=== PATIENT | female | born 1950 | race Caucasian/White ===

== ENCOUNTER 2023-09-08 09:04 | Inpatient (IN) | payer OTHER, MEDICAID ==
[~2023-09-08] VITALS: Ht 162.6 cm; Wt 48.6 kg
[2023-09-08 11:15] VITALS: BP 142/82; TEMP 97.7; O2SAT 97
[2023-09-08] MEDS ORDERED: DOCUSATE SOD LIQ 100MG/10ML UDC GT PRN (12:10)
[2023-09-08] MEDS ORDERED: ONDANSETRON 4MG ORAL DISINTEGRATING TAB SL PRN (12:10)
[2023-09-08] MEDS ORDERED: COLA100C5 PO (13:35)
[2023-09-08] MEDS ORDERED: CLOP75TA99 PO (13:35)
[2023-09-08] MEDS ORDERED: PANT-23 PO (13:35)
[2023-09-08] MEDS ORDERED: KEPP1TAB PO (13:35)
[2023-09-08] MEDS ORDERED: AMLO1TAB24 PO (13:35)
[2023-09-08] MEDS ORDERED: MIRT-11 PO (13:35)
[2023-09-08] MEDS ORDERED: ASPI-226 PO (13:35)
[2023-09-08] MEDS ORDERED: LIPI80TA PO (13:35)
[2023-09-08] MEDS ORDERED: METO50TA7 PO (13:35)
[2023-09-08] MEDS ORDERED: DILT-44 PO (13:39)
[2023-09-08] MEDS ORDERED: HOME MED LIST COMPLETE! XX SCH (13:40)
[2023-09-08 14:00] VITALS: BP 136/64; TEMP 97.7; O2SAT 98
[2023-09-08] MEDS ORDERED: SALIVA SUBSTITUTE(MOUTHKOTE) BTL MT PRN (14:55)
[2023-09-08 20:27] VITALS: BP 124/65; TEMP 97.9; O2SAT 98
[2023-09-08] MEDS: MIRTAZAPINE 15 MG TAB PO SCH (21:14)
[2023-09-08] MEDS: levETIRAcetam ORAL SOLUTION 500MG/5ML UDC GT SCH (21:15)
[2023-09-08] MEDS: ATORVASTATIN 20 MG TAB PO SCH (21:15)
[2023-09-08] MEDS: METOPROLOL TART 25 MG TABLET PO SCH (21:15)
[2023-09-08] MEDS: ACETAMINOPHEN 325MG/10.15ML UDC PO PRN (21:15)
[2023-09-08] MEDS: NYSTATIN 100,000 UNITS/GM TOPICAL PWD 15GM TOP SCH (21:22)
[2023-09-09 06:29] VITALS: BP 116/72; TEMP 97.9; O2SAT 97
[2023-09-09 07:31] LABS: HEMATOCRIT 31.8 % (36.0-47.0); HEMOGLOBIN 9.5 g/dl (12.0-15.5); MEAN CORPUSCULAR HEMOGLOBIN 25.2 pg (27.0-33.0); MEAN CORPUSCULAR HGB CONC 29.9 g/dl (32.0-36.5); MEAN CORPUSCULAR VOLUME 84.4 fl (80.0-96.0); PLATELET COUNT, AUTOMATED 290 10^3/uL (150-450); RED BLOOD COUNT 3.77 10^6/uL (4.00-5.40); WHITE BLOOD COUNT 6.6 10^3/uL (4.0-10.0)
[2023-09-09 08:04] LABS: ALBUMIN 2.2 G/DL (3.2-5.2); ALKALINE PHOSPHATASE 163 U/L (46-116); ALT/SGPT 29 U/L (7.0-40); AST/SGOT 57 U/L (<34); BILIRUBIN,TOTAL 0.2 MG/DL (0.3-1.2); BLOOD UREA NITROGEN 22 MG/DL (9-23); CALCIUM LEVEL 8.6 MG/DL (8.3-10.6); CARBON DIOXIDE LEVEL 30 MMOL/L (20-31); CHLORIDE LEVEL 103 MMOL/L (98-107); CREATININE FOR GFR 0.58 MG/DL (0.55-1.30); GLOMERULAR FILTRATION RATE > 60.0 (>39); GLUCOSE, FASTING 128 MG/DL (74-106); POTASSIUM SERUM 4.5 MMOL/L (3.5-5.1); SODIUM LEVEL 137 MMOL/L (136-145)
[2023-09-09] MEDS: ASPIRIN 81MG CHEW TABLET PEG SCH (09:28)
[2023-09-09] MEDS: levETIRAcetam ORAL SOLUTION 500MG/5ML UDC GT SCH ×2 (09:28→20:28)
[2023-09-09] MEDS: PANTOPRAZOLE 40MG TAB (PROTONIX) PO SCH (09:28)
[2023-09-09] MEDS: METOPROLOL TART 25 MG TABLET PO SCH ×2 (09:28→20:29)
[2023-09-09] MEDS: CLOPIDOGREL 75 MG TAB PEG SCH (09:28)
[2023-09-09] MEDS: NYSTATIN 100,000 UNITS/GM TOPICAL PWD 15GM TOP SCH ×2 (09:29→20:29)
[2023-09-09] MEDS: ENOXAPARIN 40MG/0.4ML SYRINGE (J1650 PER 10MG) SC SCH (09:29)
[2023-09-09 14:00] VITALS: BP 120/61; TEMP 98.1; O2SAT 97
[2023-09-09 20:00] VITALS: BP 125/63; TEMP 97; O2SAT 96
[2023-09-09] MEDS: MIRTAZAPINE 15 MG TAB PO SCH (20:28)
[2023-09-09] MEDS: ATORVASTATIN 20 MG TAB PO SCH (20:28)
[2023-09-10 06:00] VITALS: BP 117/74; TEMP 98.5; O2SAT 94
[2023-09-10 07:53] LABS: BLOOD UREA NITROGEN 24 MG/DL (9-23); CALCIUM LEVEL 8.4 MG/DL (8.3-10.6); CARBON DIOXIDE LEVEL 29 MMOL/L (20-31); CHLORIDE LEVEL 102 MMOL/L (98-107); CREATININE FOR GFR 0.58 MG/DL (0.55-1.30); GLOMERULAR FILTRATION RATE > 60.0 (>39); GLUCOSE, FASTING 126 MG/DL (74-106); MAGNESIUM LEVEL 1.8 MG/DL (1.8-2.4); POTASSIUM SERUM 4.4 MMOL/L (3.5-5.1); SODIUM LEVEL 136 MMOL/L (136-145)
[2023-09-10] MEDS: CLOPIDOGREL 75 MG TAB PEG SCH (08:44)
[2023-09-10] MEDS: levETIRAcetam ORAL SOLUTION 500MG/5ML UDC GT SCH ×2 (08:44→20:07)
[2023-09-10] MEDS: ASPIRIN 81MG CHEW TABLET PEG SCH (08:45)
[2023-09-10] MEDS: ENOXAPARIN 40MG/0.4ML SYRINGE (J1650 PER 10MG) SC SCH (08:45)
[2023-09-10] MEDS: METOPROLOL TART 25 MG TABLET PO SCH ×2 (08:45→20:08)
[2023-09-10] MEDS: PANTOPRAZOLE 40MG TAB (PROTONIX) PO SCH (08:45)
[2023-09-10] MEDS: NYSTATIN 100,000 UNITS/GM TOPICAL PWD 15GM TOP SCH ×2 (08:45→20:08)
[2023-09-10 14:00] VITALS: BP 112/62; TEMP 98.3; O2SAT 96
[2023-09-10 20:00] VITALS: BP 128/79; TEMP 97.8; O2SAT 95
[2023-09-10] MEDS: MIRTAZAPINE 15 MG TAB PO SCH (20:07)
[2023-09-10] MEDS: ATORVASTATIN 20 MG TAB PO SCH (20:07)
[2023-09-11 06:00] VITALS: BP 125/74; TEMP 97.9; O2SAT 96
[2023-09-11 06:40] LABS: HEMATOCRIT 29.4 % (36.0-47.0); MEAN CORPUSCULAR HEMOGLOBIN 25.7 pg (27.0-33.0); MEAN CORPUSCULAR HGB CONC 30.6 g/dl (32.0-36.5); PLATELET COUNT, AUTOMATED 279 10^3/uL (150-450); WHITE BLOOD COUNT 8.3 10^3/uL (4.0-10.0)
[2023-09-11 07:07] LABS: BLOOD UREA NITROGEN 22 MG/DL (9-23); CALCIUM LEVEL 8.6 MG/DL (8.3-10.6); CARBON DIOXIDE LEVEL 28 MMOL/L (20-31); CHLORIDE LEVEL 101 MMOL/L (98-107); CREATININE FOR GFR 0.58 MG/DL (0.55-1.30); GLOMERULAR FILTRATION RATE > 60.0 (>39); GLUCOSE, FASTING 125 MG/DL (74-106); MAGNESIUM LEVEL 1.9 MG/DL (1.8-2.4); POTASSIUM SERUM 4.4 MMOL/L (3.5-5.1); SODIUM LEVEL 135 MMOL/L (136-145)
[2023-09-11] MEDS: ENOXAPARIN 40MG/0.4ML SYRINGE (J1650 PER 10MG) SC SCH (07:45)
[2023-09-11] MEDS: CLOPIDOGREL 75 MG TAB PEG SCH (07:46)
[2023-09-11] MEDS: levETIRAcetam ORAL SOLUTION 500MG/5ML UDC GT SCH ×2 (07:46→20:41)
[2023-09-11] MEDS: METOPROLOL TART 25 MG TABLET PO SCH ×2 (07:46→20:42)
[2023-09-11] MEDS: PANTOPRAZOLE 40MG TAB (PROTONIX) PO SCH (07:46)
[2023-09-11] MEDS: ASPIRIN 81MG CHEW TABLET PEG SCH (07:46)
[2023-09-11] MEDS: NYSTATIN 100,000 UNITS/GM TOPICAL PWD 15GM TOP SCH ×2 (07:47→20:43)
[2023-09-11 14:00] VITALS: BP 148/88; TEMP 97.5; O2SAT 98
[2023-09-11 20:00] VITALS: BP 125/70; TEMP 97.9; O2SAT 97
[2023-09-11] MEDS: ATORVASTATIN 20 MG TAB PO SCH (20:41)
[2023-09-11] MEDS: MIRTAZAPINE 15 MG TAB PO SCH (20:42)
[2023-09-12 06:07] VITALS: BP 124/67; TEMP 98.3; O2SAT 97
[2023-09-12] MEDS: METOPROLOL TART 25 MG TABLET PO SCH ×2 (07:10→20:38)
[2023-09-12] MEDS: levETIRAcetam ORAL SOLUTION 500MG/5ML UDC GT SCH ×2 (07:10→20:38)
[2023-09-12] MEDS: SINEMET 12.5MG/50MG PER 1/2 TABLET PEG SCH ×2 (07:10→17:15)
[2023-09-12] MEDS: CLOPIDOGREL 75 MG TAB PEG SCH (07:10)
[2023-09-12] MEDS: ENOXAPARIN 40MG/0.4ML SYRINGE (J1650 PER 10MG) SC SCH (07:11)
[2023-09-12] MEDS: ASPIRIN 81MG CHEW TABLET PEG SCH (07:11)
[2023-09-12] MEDS: PANTOPRAZOLE 40MG TAB (PROTONIX) PO SCH (07:11)
[2023-09-12] MEDS: NYSTATIN 100,000 UNITS/GM TOPICAL PWD 15GM TOP SCH ×2 (07:12→20:39)
[2023-09-12 07:29] LABS: BLOOD UREA NITROGEN 25 MG/DL (9-23); CALCIUM LEVEL 8.7 MG/DL (8.3-10.6); CARBON DIOXIDE LEVEL 30 MMOL/L (20-31); CHLORIDE LEVEL 101 MMOL/L (98-107); CREATININE FOR GFR 0.61 MG/DL (0.55-1.30); GLOMERULAR FILTRATION RATE > 60.0 (>39); GLUCOSE, FASTING 121 MG/DL (74-106); MAGNESIUM LEVEL 2.1 MG/DL (1.8-2.4); POTASSIUM SERUM 4.4 MMOL/L (3.5-5.1); SODIUM LEVEL 136 MMOL/L (136-145)
[2023-09-12] MEDS ORDERED: VARIBAR NECTAR 40% w/v 240ML SUSP BTL As Ordered ONE (12:41)
[2023-09-12] MEDS ORDERED: VARIBAR PUDDING 40% w/v 230ML TUBE As Ordered ONE (12:41)
[2023-09-12] MEDS ORDERED: E-Z-PAQUE 96% w/w SUSP 176GM BTL As Ordered ONE (12:42)
[2023-09-12] MEDS ORDERED: BARIUM SULFATE 700 MG TABLET (E-Z-DISK) As Ordered ONE (12:42)
[2023-09-12 14:00] VITALS: BP 113/63; TEMP 97.6; O2SAT 95
[2023-09-12 20:00] VITALS: BP 118/63; TEMP 97.8; O2SAT 99
[2023-09-12] MEDS: MIRTAZAPINE 15 MG TAB PO SCH (20:38)
[2023-09-12] MEDS: ATORVASTATIN 20 MG TAB PO SCH (20:38)
[2023-09-13 06:00] VITALS: BP 109/63; TEMP 96.8; O2SAT 96
[2023-09-13 07:02] LABS: BLOOD UREA NITROGEN 26 MG/DL (9-23); CALCIUM LEVEL 8.8 MG/DL (8.3-10.6); CARBON DIOXIDE LEVEL 31 MMOL/L (20-31); CHLORIDE LEVEL 100 MMOL/L (98-107); CREATININE FOR GFR 0.59 MG/DL (0.55-1.30); GLOMERULAR FILTRATION RATE > 60.0 (>39); GLUCOSE, FASTING 133 MG/DL (74-106); MAGNESIUM LEVEL 1.9 MG/DL (1.8-2.4); POTASSIUM SERUM 4.5 MMOL/L (3.5-5.1); SODIUM LEVEL 136 MMOL/L (136-145)
[2023-09-13] MEDS: levETIRAcetam ORAL SOLUTION 500MG/5ML UDC GT SCH ×2 (09:36→21:12)
[2023-09-13] MEDS: ASPIRIN 81MG CHEW TABLET PEG SCH (09:36)
[2023-09-13] MEDS: CLOPIDOGREL 75 MG TAB PEG SCH (09:36)
[2023-09-13] MEDS: SINEMET 12.5MG/50MG PER 1/2 TABLET PEG SCH ×2 (09:37→17:26)
[2023-09-13] MEDS: PANTOPRAZOLE 40MG TAB (PROTONIX) PO SCH (09:37)
[2023-09-13] MEDS: METOPROLOL TART 25 MG TABLET PO SCH ×2 (09:37→21:16)
[2023-09-13] MEDS: ENOXAPARIN 40MG/0.4ML SYRINGE (J1650 PER 10MG) SC SCH (09:38)
[2023-09-13] MEDS: NYSTATIN 100,000 UNITS/GM TOPICAL PWD 15GM TOP SCH ×2 (09:38→21:17)
[2023-09-13 14:00] VITALS: BP 134/80; TEMP 96.7; O2SAT 97
[2023-09-13 20:00] VITALS: BP 114/69; TEMP 97.2; O2SAT 100
[2023-09-13] MEDS: ACETAMINOPHEN 325MG/10.15ML UDC PO PRN (21:12)
[2023-09-13] MEDS: MIRTAZAPINE 15 MG TAB PO SCH (21:13)
[2023-09-13] MEDS: ATORVASTATIN 20 MG TAB PO SCH (21:13)
[2023-09-14 06:00] VITALS: BP 104/71; TEMP 97.2; O2SAT 95
[2023-09-14 07:24] LABS: HEMATOCRIT 30.1 % (36.0-47.0); HEMOGLOBIN 9.2 g/dl (12.0-15.5); MEAN CORPUSCULAR HEMOGLOBIN 25.6 pg (27.0-33.0); MEAN CORPUSCULAR HGB CONC 30.6 g/dl (32.0-36.5); MEAN CORPUSCULAR VOLUME 83.8 fl (80.0-96.0); PLATELET COUNT, AUTOMATED 297 10^3/uL (150-450); RED BLOOD COUNT 3.59 10^6/uL (4.00-5.40); WHITE BLOOD COUNT 6.9 10^3/uL (4.0-10.0)
[2023-09-14 08:11] LABS: BLOOD UREA NITROGEN 26 MG/DL (9-23); CALCIUM LEVEL 8.5 MG/DL (8.3-10.6); CARBON DIOXIDE LEVEL 32 MMOL/L (20-31); CHLORIDE LEVEL 101 MMOL/L (98-107); CREATININE FOR GFR 0.63 MG/DL (0.55-1.30); GLOMERULAR FILTRATION RATE > 60.0 (>39); GLUCOSE, FASTING 118 MG/DL (74-106); MAGNESIUM LEVEL 1.9 MG/DL (1.8-2.4); POTASSIUM SERUM 4.8 MMOL/L (3.5-5.1); SODIUM LEVEL 138 MMOL/L (136-145)
[2023-09-14] MEDS: levETIRAcetam ORAL SOLUTION 500MG/5ML UDC GT SCH ×2 (08:17→21:38)
[2023-09-14] MEDS: ASPIRIN 81MG CHEW TABLET PEG SCH (08:17)
[2023-09-14] MEDS: SINEMET 12.5MG/50MG PER 1/2 TABLET PEG SCH ×2 (08:17→18:18)
[2023-09-14] MEDS: PANTOPRAZOLE 40MG TAB (PROTONIX) PO SCH (08:18)
[2023-09-14] MEDS: ENOXAPARIN 40MG/0.4ML SYRINGE (J1650 PER 10MG) SC SCH (08:18)
[2023-09-14] MEDS: METOPROLOL TART 25 MG TABLET PO SCH ×2 (08:18→21:39)
[2023-09-14] MEDS: CLOPIDOGREL 75 MG TAB PEG SCH (08:19)
[2023-09-14] MEDS: NYSTATIN 100,000 UNITS/GM TOPICAL PWD 15GM TOP SCH ×2 (08:19→21:40)
[2023-09-14 14:00] VITALS: BP 121/75; TEMP 97.5; O2SAT 98
[2023-09-14] MEDS: RIVAROXABAN 20MG TAB (XARELTO) PO SCH (18:18)
[2023-09-14 20:00] VITALS: BP 144/63; TEMP 97.7; O2SAT 96
[2023-09-14] MEDS: MIRTAZAPINE 15 MG TAB PO SCH (21:38)
[2023-09-14] MEDS: ACETAMINOPHEN 325MG/10.15ML UDC PO PRN (21:38)
[2023-09-14] MEDS: ATORVASTATIN 20 MG TAB PO SCH (21:39)
[2023-09-15 06:00] VITALS: BP 102/65; TEMP 96.5; O2SAT 98
[2023-09-15 07:58] LABS: BLOOD UREA NITROGEN 26 MG/DL (9-23); CALCIUM LEVEL 8.7 MG/DL (8.3-10.6); CARBON DIOXIDE LEVEL 31 MMOL/L (20-31); CHLORIDE LEVEL 100 MMOL/L (98-107); CREATININE FOR GFR 0.62 MG/DL (0.55-1.30); GLOMERULAR FILTRATION RATE > 60.0 (>39); GLUCOSE, FASTING 123 MG/DL (74-106); POTASSIUM SERUM 4.5 MMOL/L (3.5-5.1); SODIUM LEVEL 135 MMOL/L (136-145)
[2023-09-15] MEDS: ASPIRIN 81MG CHEW TABLET PEG SCH (08:06)
[2023-09-15] MEDS: levETIRAcetam ORAL SOLUTION 500MG/5ML UDC GT SCH ×2 (08:06→21:04)
[2023-09-15] MEDS: SINEMET 12.5MG/50MG PER 1/2 TABLET PEG SCH ×2 (08:07→17:37)
[2023-09-15] MEDS: PANTOPRAZOLE 40MG TAB (PROTONIX) PO SCH (08:07)
[2023-09-15] MEDS: NYSTATIN 100,000 UNITS/GM TOPICAL PWD 15GM TOP SCH ×2 (08:07→21:05)
[2023-09-15] MEDS: METOPROLOL TART 25 MG TABLET PO SCH ×2 (09:00→21:04)
[2023-09-15 14:22] VITALS: BP 123/65; TEMP 97.3; O2SAT 96
[2023-09-15] MEDS: RIVAROXABAN 20MG TAB (XARELTO) PO SCH (17:37)
[2023-09-15 19:42] VITALS: BP 128/72; TEMP 97.7; O2SAT 98
[2023-09-15] MEDS: MIRTAZAPINE 15 MG TAB PO SCH (21:04)
[2023-09-15] MEDS: ATORVASTATIN 20 MG TAB PO SCH (21:05)
[2023-09-16 06:00] VITALS: BP 130/80; TEMP 98; O2SAT 97
[2023-09-16 08:15] LABS: BLOOD UREA NITROGEN 25 MG/DL (9-23); CALCIUM LEVEL 8.6 MG/DL (8.3-10.6); CARBON DIOXIDE LEVEL 32 MMOL/L (20-31); CHLORIDE LEVEL 101 MMOL/L (98-107); CREATININE FOR GFR 0.64 MG/DL (0.55-1.30); GLOMERULAR FILTRATION RATE > 60.0 (>39); GLUCOSE, FASTING 125 MG/DL (74-106); MAGNESIUM LEVEL 1.8 MG/DL (1.8-2.4); POTASSIUM SERUM 4.7 MMOL/L (3.5-5.1); SODIUM LEVEL 136 MMOL/L (136-145)
[2023-09-16] MEDS: levETIRAcetam ORAL SOLUTION 500MG/5ML UDC GT SCH ×2 (08:19→20:25)
[2023-09-16] MEDS: ASPIRIN 81MG CHEW TABLET PEG SCH (08:19)
[2023-09-16] MEDS: SINEMET 12.5MG/50MG PER 1/2 TABLET PEG SCH ×2 (08:19→17:44)
[2023-09-16] MEDS: PANTOPRAZOLE 40MG TAB (PROTONIX) PO SCH (08:19)
[2023-09-16] MEDS: NYSTATIN 100,000 UNITS/GM TOPICAL PWD 15GM TOP SCH ×2 (08:20→20:26)
[2023-09-16] MEDS: METOPROLOL TART 25 MG TABLET PO SCH ×2 (08:20→20:26)
[2023-09-16 14:00] VITALS: BP 91/59; TEMP 97; O2SAT 98
[2023-09-16] MEDS: RIVAROXABAN 20MG TAB (XARELTO) PO SCH (17:44)
[2023-09-16 20:00] VITALS: BP 121/65; TEMP 97.1; O2SAT 98
[2023-09-16] MEDS: ATORVASTATIN 20 MG TAB PO SCH (20:25)
[2023-09-16] MEDS: MIRTAZAPINE 15 MG TAB PO SCH (20:26)
[2023-09-17 06:00] VITALS: BP 115/62; TEMP 96.9; O2SAT 97
[2023-09-17 07:21] LABS: HEMOGLOBIN 9.8 g/dl (12.0-15.5); MEAN CORPUSCULAR HEMOGLOBIN 25.7 pg (27.0-33.0); MEAN CORPUSCULAR HGB CONC 30.6 g/dl (32.0-36.5); PLATELET COUNT, AUTOMATED 342 10^3/uL (150-450); RED BLOOD COUNT 3.81 10^6/uL (4.00-5.40); WHITE BLOOD COUNT 8.7 10^3/uL (4.0-10.0)
[2023-09-17] MEDS: METOPROLOL TART 25 MG TABLET PO SCH ×2 (07:25→20:56)
[2023-09-17] MEDS: SINEMET 12.5MG/50MG PER 1/2 TABLET PEG SCH ×2 (07:25→17:09)
[2023-09-17] MEDS: levETIRAcetam ORAL SOLUTION 500MG/5ML UDC GT SCH ×2 (07:25→20:56)
[2023-09-17] MEDS: ASPIRIN 81MG CHEW TABLET PEG SCH (07:26)
[2023-09-17] MEDS: PANTOPRAZOLE 40MG TAB (PROTONIX) PO SCH (07:26)
[2023-09-17] MEDS: NYSTATIN 100,000 UNITS/GM TOPICAL PWD 15GM TOP SCH ×2 (07:26→20:56)
[2023-09-17 14:00] VITALS: BP 108/66; TEMP 97.7; O2SAT 97
[2023-09-17] MEDS: RIVAROXABAN 20MG TAB (XARELTO) PO SCH (17:09)
[2023-09-17 20:00] VITALS: BP 122/76; TEMP 96.7; O2SAT 99
[2023-09-17] MEDS: MIRTAZAPINE 15 MG TAB PO SCH (20:55)
[2023-09-17] MEDS: ATORVASTATIN 20 MG TAB PO SCH (20:55)
[2023-09-18 06:00] VITALS: BP 117/64; TEMP 96.9; O2SAT 98
[2023-09-18] MEDS: PANTOPRAZOLE 40MG TAB (PROTONIX) PO SCH (09:14)
[2023-09-18] MEDS: levETIRAcetam ORAL SOLUTION 500MG/5ML UDC GT SCH ×2 (09:14→21:28)
[2023-09-18] MEDS: ASPIRIN 81MG CHEW TABLET PEG SCH (09:15)
[2023-09-18] MEDS: SINEMET 12.5MG/50MG PER 1/2 TABLET PEG SCH ×2 (09:15→18:21)
[2023-09-18] MEDS: NYSTATIN 100,000 UNITS/GM TOPICAL PWD 15GM TOP SCH ×2 (09:18→21:29)
[2023-09-18] MEDS: METOPROLOL TART 25 MG TABLET PO SCH ×2 (09:18→21:28)
[2023-09-18] MEDS: ACETAMINOPHEN 325MG/10.15ML UDC PO PRN ×2 (09:18→21:27)
[2023-09-18 14:00] VITALS: BP 112/56; TEMP 97; O2SAT 98
[2023-09-18] MEDS: RIVAROXABAN 20MG TAB (XARELTO) PO SCH (18:21)
[2023-09-18 20:01] VITALS: BP 112/64; TEMP 97; O2SAT 100
[2023-09-18] MEDS: ATORVASTATIN 20 MG TAB PO SCH (21:28)
[2023-09-18] MEDS: MIRTAZAPINE 15 MG TAB PO SCH (21:28)
[2023-09-19 06:00] VITALS: BP 96/55; TEMP 97; O2SAT 98
[2023-09-19] MEDS: METOPROLOL TART 25 MG TABLET PO SCH ×2 (09:00→21:36)
[2023-09-19] MEDS: ASPIRIN 81MG CHEW TABLET PEG SCH (09:14)
[2023-09-19] MEDS: SINEMET 12.5MG/50MG PER 1/2 TABLET PEG SCH ×2 (09:14→17:32)
[2023-09-19] MEDS: NYSTATIN 100,000 UNITS/GM TOPICAL PWD 15GM TOP SCH ×2 (09:14→21:36)
[2023-09-19] MEDS: levETIRAcetam ORAL SOLUTION 500MG/5ML UDC GT SCH ×2 (09:14→21:36)
[2023-09-19] MEDS: PANTOPRAZOLE 40MG TAB (PROTONIX) PO SCH (09:14)
[2023-09-19 09:15] VITALS: BP 109/82
[2023-09-19 14:00] VITALS: BP 97/62; TEMP 97.5; O2SAT 97
[2023-09-19] MEDS: RIVAROXABAN 20MG TAB (XARELTO) PO SCH (17:32)
[2023-09-19 20:00] VITALS: BP 114/64; TEMP 97; O2SAT 98
[2023-09-19] MEDS: ATORVASTATIN 20 MG TAB PO SCH (21:35)
[2023-09-19] MEDS: MIRTAZAPINE 15 MG TAB PO SCH (21:35)
[2023-09-19] MEDS: ACETAMINOPHEN 325MG/10.15ML UDC PO PRN (21:37)
[2023-09-20 06:00] VITALS: BP 126/79; TEMP 97.4; O2SAT 98
[2023-09-20 06:37] LABS: HEMATOCRIT 31.6 % (36.0-47.0); HEMOGLOBIN 9.7 g/dl (12.0-15.5); MEAN CORPUSCULAR HEMOGLOBIN 25.9 pg (27.0-33.0); MEAN CORPUSCULAR HGB CONC 30.7 g/dl (32.0-36.5); MEAN CORPUSCULAR VOLUME 84.5 fl (80.0-96.0); PLATELET COUNT, AUTOMATED 353 10^3/uL (150-450); RED BLOOD COUNT 3.74 10^6/uL (4.00-5.40); WHITE BLOOD COUNT 7.1 10^3/uL (4.0-10.0)
[2023-09-20] MEDS: METOPROLOL TART 25 MG TABLET PO SCH ×2 (09:00→21:59)
[2023-09-20] MEDS: levETIRAcetam ORAL SOLUTION 500MG/5ML UDC GT SCH ×2 (09:42→21:59)
[2023-09-20] MEDS: ASPIRIN 81MG CHEW TABLET PEG SCH (09:42)
[2023-09-20 09:43] VITALS: BP 97/65
[2023-09-20] MEDS: PANTOPRAZOLE 40MG TAB (PROTONIX) PO SCH (09:43)
[2023-09-20] MEDS: NYSTATIN 100,000 UNITS/GM TOPICAL PWD 15GM TOP SCH ×2 (09:45→22:00)
[2023-09-20] MEDS: SINEMET 12.5MG/50MG PER 1/2 TABLET PEG SCH ×2 (10:02→18:11)
[2023-09-20 14:00] VITALS: BP 117/63; TEMP 97.6; O2SAT 96
[2023-09-20] MEDS: RIVAROXABAN 20MG TAB (XARELTO) PO SCH (18:11)
[2023-09-20 20:15] VITALS: BP 112/60; TEMP 97.9; O2SAT 96
[2023-09-20] MEDS: MIRTAZAPINE 15 MG TAB PO SCH (21:58)
[2023-09-20] MEDS: ATORVASTATIN 20 MG TAB PO SCH (21:58)
[2023-09-21 06:03] VITALS: BP 110/68; TEMP 97.9; O2SAT 95
[2023-09-21] MEDS: METOPROLOL TART 25 MG TABLET PO SCH ×2 (09:00→20:51)
[2023-09-21] MEDS: NYSTATIN 100,000 UNITS/GM TOPICAL PWD 15GM TOP SCH ×2 (09:00→20:52)
[2023-09-21] MEDS: SINEMET 12.5MG/50MG PER 1/2 TABLET PEG SCH ×2 (11:24→17:18)
[2023-09-21] MEDS: levETIRAcetam ORAL SOLUTION 500MG/5ML UDC GT SCH ×2 (11:24→20:50)
[2023-09-21] MEDS: PANTOPRAZOLE 40MG TAB (PROTONIX) PO SCH (11:29)
[2023-09-21] MEDS: ASPIRIN 81MG CHEW TABLET PEG SCH (11:29)
[2023-09-21 14:00] VITALS: BP 120/58; TEMP 97; O2SAT 96
[2023-09-21] MEDS: RIVAROXABAN 20MG TAB (XARELTO) PO SCH (17:18)
[2023-09-21 20:00] VITALS: BP 108/56; TEMP 97.9; O2SAT 98
[2023-09-21] MEDS: ACETAMINOPHEN 325MG/10.15ML UDC PO PRN (20:50)
[2023-09-21] MEDS: ATORVASTATIN 20 MG TAB PO SCH (20:51)
[2023-09-21] MEDS: MIRTAZAPINE 15 MG TAB PO SCH (20:51)
[2023-09-22 06:00] VITALS: BP 118/62; TEMP 97.3; O2SAT 90
[2023-09-22] MEDS: SINEMET 12.5MG/50MG PER 1/2 TABLET PEG SCH ×2 (08:51→19:26)
[2023-09-22] MEDS: METOPROLOL TART 25 MG TABLET PO SCH ×2 (08:51→21:00)
[2023-09-22] MEDS: PANTOPRAZOLE 40MG TAB (PROTONIX) PO SCH (08:51)
[2023-09-22] MEDS: ASPIRIN 81MG CHEW TABLET PEG SCH (08:51)
[2023-09-22] MEDS: levETIRAcetam ORAL SOLUTION 500MG/5ML UDC GT SCH ×2 (08:51→22:00)
[2023-09-22] MEDS: NYSTATIN 100,000 UNITS/GM TOPICAL PWD 15GM TOP SCH ×2 (08:52→21:00)
[2023-09-22 14:00] VITALS: BP 104/78; TEMP 98; O2SAT 95
[2023-09-22] MEDS: RIVAROXABAN 20MG TAB (XARELTO) PO SCH (19:25)
[2023-09-22 20:00] VITALS: BP 100/56; TEMP 97.9; O2SAT 92
[2023-09-22] MEDS: ATORVASTATIN 20 MG TAB PO SCH (22:00)
[2023-09-22] MEDS: MIRTAZAPINE 15 MG TAB PO SCH (22:00)
[2023-09-23 06:00] VITALS: BP 108/68; TEMP 97.7; O2SAT 92
[2023-09-23] MEDS: METOPROLOL TART 25 MG TABLET PO SCH ×2 (09:40→21:00)
[2023-09-23] MEDS: PANTOPRAZOLE 40MG TAB (PROTONIX) PO SCH (09:41)
[2023-09-23] MEDS: NYSTATIN 100,000 UNITS/GM TOPICAL PWD 15GM TOP SCH ×2 (09:41→21:09)
[2023-09-23] MEDS: ASPIRIN 81MG CHEW TABLET PEG SCH (09:41)
[2023-09-23] MEDS: levETIRAcetam ORAL SOLUTION 500MG/5ML UDC GT SCH ×2 (09:41→21:07)
[2023-09-23] MEDS: SINEMET 12.5MG/50MG PER 1/2 TABLET PEG SCH ×2 (09:41→17:35)
[2023-09-23 14:00] VITALS: BP 111/62; TEMP 98; O2SAT 96
[2023-09-23] MEDS: RIVAROXABAN 20MG TAB (XARELTO) PO SCH (17:35)
[2023-09-23 20:00] VITALS: BP 90/56; TEMP 98; O2SAT 95
[2023-09-23] MEDS: ATORVASTATIN 20 MG TAB PO SCH (21:07)
[2023-09-23] MEDS: MIRTAZAPINE 15 MG TAB PO SCH (21:07)
[2023-09-24 06:00] VITALS: BP 129/77; TEMP 98.1; O2SAT 96
[2023-09-24] MEDS: SINEMET 12.5MG/50MG PER 1/2 TABLET PEG SCH ×2 (07:56→17:55)
[2023-09-24] MEDS: PANTOPRAZOLE 40MG TAB (PROTONIX) PO SCH (07:57)
[2023-09-24] MEDS: ASPIRIN 81MG CHEW TABLET PEG SCH (07:57)
[2023-09-24] MEDS: NYSTATIN 100,000 UNITS/GM TOPICAL PWD 15GM TOP SCH ×2 (07:57→21:57)
[2023-09-24] MEDS: levETIRAcetam ORAL SOLUTION 500MG/5ML UDC GT SCH ×2 (07:57→21:55)
[2023-09-24 08:08] VITALS: BP 114/74
[2023-09-24] MEDS: METOPROLOL TART 25 MG TABLET PO SCH ×2 (09:00→21:56)
[2023-09-24 14:00] VITALS: BP 113/69; TEMP 97.9; O2SAT 95
[2023-09-24] MEDS: RIVAROXABAN 20MG TAB (XARELTO) PO SCH (17:55)
[2023-09-24 20:00] VITALS: BP 109/62; TEMP 97.7; O2SAT 96
[2023-09-24] MEDS: MIRTAZAPINE 15 MG TAB PO SCH (21:55)
[2023-09-24] MEDS: ATORVASTATIN 20 MG TAB PO SCH (21:55)
[2023-09-24] MEDS: ACETAMINOPHEN 325MG/10.15ML UDC PO PRN (21:57)
[2023-09-25 06:00] VITALS: BP 111/56; TEMP 97.3; O2SAT 98
[2023-09-25 06:55] LABS: HEMATOCRIT 31.1 % (36.0-47.0); HEMOGLOBIN 9.2 g/dl (12.0-15.5); MEAN CORPUSCULAR HEMOGLOBIN 24.9 pg (27.0-33.0); MEAN CORPUSCULAR HGB CONC 29.6 g/dl (32.0-36.5); MEAN CORPUSCULAR VOLUME 84.3 fl (80.0-96.0); PLATELET COUNT, AUTOMATED 281 10^3/uL (150-450); RED BLOOD COUNT 3.69 10^6/uL (4.00-5.40); WHITE BLOOD COUNT 8.6 10^3/uL (4.0-10.0)
[2023-09-25 07:17] LABS: BLOOD UREA NITROGEN 26 MG/DL (9-23); CALCIUM LEVEL 8.8 MG/DL (8.3-10.6); CARBON DIOXIDE LEVEL 30 MMOL/L (20-31); CHLORIDE LEVEL 101 MMOL/L (98-107); CREATININE FOR GFR 0.66 MG/DL (0.55-1.30); GLOMERULAR FILTRATION RATE > 60.0 (>39); GLUCOSE, FASTING 96 MG/DL (74-106); MAGNESIUM LEVEL 1.9 MG/DL (1.8-2.4); SODIUM LEVEL 136 MMOL/L (136-145)
[2023-09-25] MEDS: PANTOPRAZOLE 40MG TAB (PROTONIX) PO SCH (07:46)
[2023-09-25] MEDS: SINEMET 12.5MG/50MG PER 1/2 TABLET PEG SCH ×2 (07:47→17:43)
[2023-09-25] MEDS: levETIRAcetam ORAL SOLUTION 500MG/5ML UDC GT SCH ×2 (07:47→21:58)
[2023-09-25] MEDS: ASPIRIN 81MG CHEW TABLET PEG SCH (07:47)
[2023-09-25] MEDS: METOPROLOL TART 25 MG TABLET PO SCH ×2 (07:47→21:00)
[2023-09-25] MEDS: NYSTATIN 100,000 UNITS/GM TOPICAL PWD 15GM TOP SCH ×2 (07:48→21:58)
[2023-09-25 14:00] VITALS: BP 122/62; TEMP 97.9; O2SAT 96
[2023-09-25] MEDS: RIVAROXABAN 20MG TAB (XARELTO) PO SCH (17:43)
[2023-09-25 20:00] VITALS: BP 103/64; TEMP 97.7; O2SAT 92
[2023-09-25] MEDS: MIRTAZAPINE 15 MG TAB PO SCH (21:58)
[2023-09-25] MEDS: ATORVASTATIN 20 MG TAB PO SCH (21:58)
[2023-09-25] MEDS: ACETAMINOPHEN 325MG/10.15ML UDC PO PRN (21:58)
[2023-09-26 06:00] VITALS: BP 125/80; TEMP 97.8; O2SAT 100
[2023-09-26] MEDS: SINEMET 12.5MG/50MG PER 1/2 TABLET PEG SCH (09:48)
[2023-09-26] MEDS: ASPIRIN 81MG CHEW TABLET PEG SCH (09:48)
[2023-09-26] MEDS: PANTOPRAZOLE 40MG TAB (PROTONIX) PO SCH (09:48)
[2023-09-26] MEDS: levETIRAcetam ORAL SOLUTION 500MG/5ML UDC GT SCH (09:48)
[2023-09-26 09:49] VITALS: BP 125/80
[2023-09-26] MEDS: METOPROLOL TART 25 MG TABLET PO SCH (09:49)
[2023-09-26] MEDS: NYSTATIN 100,000 UNITS/GM TOPICAL PWD 15GM TOP SCH (09:49)
[2023-09-26] MEDS ORDERED: CARB25TA9 PEG (10:23)
[2023-09-26] MEDS ORDERED: XARE20TA PO (10:23)
[2023-09-26] MEDS ORDERED: MOUKOT60 MT (10:23)
== END 2023-09-26 14:45 | DRG 56 ==
LOC: M PM&R 11:07
PROVIDERS: ADMIT Student in an Organized Health Care Education/Training Program; ATTEND Student in an Organized Health Care Education/Training Program
DX: I69.351 Hemiplegia and hemiparesis following cerebral infarction affecting right dominant side (principal); E43 Unspecified severe protein-calorie malnutrition; I69.322 Dysarthria following cerebral infarction; I10 Essential (primary) hypertension; I25.10 Atherosclerotic heart disease of native coronary artery without angina pectoris; F17.200 Nicotine dependence, unspecified, uncomplicated; I48.91 Unspecified atrial fibrillation; Z79.01 Long term (current) use of anticoagulants; Z95.2 Presence of prosthetic heart valve; G40.909 Epilepsy, unspecified, not intractable, without status epilepticus; I69.320 Aphasia following cerebral infarction; E78.5 Hyperlipidemia, unspecified; F32.A Depression, unspecified; J43.9 Emphysema, unspecified; I71.40 Abdominal aortic aneurysm, without rupture, unspecified; K21.9 Gastro-esophageal reflux disease without esophagitis; M54.59 Other low back pain; D64.9 Anemia, unspecified; G20.C Parkinsonism, unspecified; G47.33 Obstructive sleep apnea (adult) (pediatric); Z91.119 Patient's noncompliance with dietary regimen due to unspecified reason; Z79.899 Other long term (current) drug therapy; Z79.82 Long term (current) use of aspirin; H54.8 Legal blindness, as defined in USA; Z93.1 Gastrostomy status; R41.89 Other symptoms and signs involving cognitive functions and awareness; R32 Unspecified urinary incontinence